=== PATIENT | male | born 1950 | race Caucasian/White ===

== ENCOUNTER 2025-02-21 09:54 | Inpatient (IN) ==
--- NOTE | 2025-01-29 09:58 | PAT Medication Instructions ---
Medication Instructions Date of Service January 29, 2025 Home Medications amlodipine 10 mg tablet 10 mg PO QAM ascorbic acid (vitamin C) 500 mg tablet (Vitamin C) 500 mg PO QAM aspirin 325 mg tablet 325 mg PO QAM atorvastatin 80 mg tablet 80 mg PO QAM carvedilol 25 mg tablet 25 mg PO BID cholecalciferol (vitamin D3) 25 mcg (1,000 unit) tablet (Vitamin D3) 25 mcg PO QAM ezetimibe 10 mg tablet (Zetia) 10 mg PO QAM garlic 400 mg tablet,delayed release 400 mg PO QAM lisinopril 40 mg tablet 40 mg PO QAM omeprazole 20 mg capsule,delayed release 20 mg PO QAM zinc 50 mg tablet 50 mg PO QAM PRN magnesium 200 mg tablet 400 mg PO QAM ASK your prescriber and surgeon aspirin 325 mg tablet 325 mg PO QAM STOP taking 2 weeks before surgery (or as soon as possible if surgery is within 2 weeks) garlic 400 mg tablet,delayed release 400 mg PO QAM DO NOT take the morning of surgery ascorbic acid (vitamin C) 500 mg tablet (Vitamin C) 500 mg PO QAM cholecalciferol (vitamin D3) 25 mcg (1,000 unit) tablet (Vitamin D3) 25 mcg PO QAM lisinopril 40 mg tablet 40 mg PO QAM zinc 50 mg tablet 50 mg PO QAM PRN magnesium 200 mg tablet 400 mg PO QAM Take morning of surgery With a small sip of water, OTHERWISE NOTHING TO EAT OR DRINK AFTER MIDNIGHT: amlodipine 10 mg tablet 10 mg PO QAM atorvastatin 80 mg tablet 80 mg PO QAM carvedilol 25 mg tablet 25 mg PO BID ezetimibe 10 mg tablet (Zetia) 10 mg PO QAM omeprazole 20 mg capsule,delayed release 20 mg PO QAM Take evening before surgery carvedilol 25 mg tablet 25 mg PO BID Other Notes If you have any questions please call us at [phone] or [phone] or [phone] or [phone]
--- NOTE | 2025-02-02 09:39 | Anesthesiology Consultation ---
Date of Service February 02, 2025 Assessment & Plan (1) Encounter for pre-operative examination: - awaiting surgeon ordered S medical and cardiology clearances. Chart Review Chart Review: Pending: Refer to Additional Notes / Consult section and Patient seen in Pre Admission Testing Teaching & Discussion Pre-Anesthesia Teaching/Discussion Notes: Instructed NPO after midnight before surgery, except medications with 15 cc of water. Medication instructions provided according to the PAT guidelines. History Surgery Operation Date: 02/21/25 09:35 Proposed Procedures p L2-L3 Decompression and Fusion, Exploration L3-S1, Possible Hardware Removal L4-S1 - Alex Childs, Height/Weight Height: 5 ft 5 in Weight: 78.4 kg Allergies Allergy/AdvReac Type Severity Reaction Status Date / Time No Known Allergies Allergy Unknown Verified 01/29/25 09:09 Medications Home Medications Medication Instructions Recorded Confirmed Last Taken amlodipine 10 mg tablet 10 mg PO QAM 02/17/23 01/29/25 Unknown ascorbic acid (vitamin C) 500 mg 500 mg PO QAM 02/17/23 01/29/25 Unknown tablet (Vitamin C) aspirin 325 mg tablet 325 mg PO QAM 02/17/23 01/29/25 Unknown atorvastatin 80 mg tablet 80 mg PO QAM 02/17/23 01/29/25 Unknown carvedilol 25 mg tablet 25 mg PO BID 02/17/23 01/29/25 Unknown cholecalciferol (vitamin D3) 25 25 mcg PO QAM 02/17/23 01/29/25 Unknown mcg (1,000 unit) tablet (Vitamin D3) ezetimibe 10 mg tablet (Zetia) 10 mg PO QAM 02/17/23 01/29/25 Unknown garlic 400 mg tablet,delayed 400 mg PO QAM 02/17/23 01/29/25 Unknown release lisinopril 40 mg tablet 40 mg PO QAM 02/17/23 01/29/25 Unknown omeprazole 20 mg capsule,delayed 20 mg PO QAM 02/17/23 01/29/25 Unknown release zinc 50 mg tablet 50 mg PO QAM PRN winter time only 02/17/23 01/29/25 Unknown magnesium 200 mg tablet 400 mg PO QAM 08/19/23 01/29/25 Unknown Past Medical History Medical History (Updated 02/02/25 @ 10:03 by Janee Benavidez PA-C) CAD (coronary artery disease) Per cardiac cath 2012- pRCA 80%, mRCA 90%, mLAD 60% (not significant by FFR 0.85), D2 branch with 70% (significant by FFR 0.72), Cx is small with diffuse minor irregularities Chronic back pain Degenerative disc disease GERD (gastroesophageal reflux disease) controlled, stable per pt History of aortic stenosis s/p TAVR 12/2023 Echo 02/2024: Trivial paravalvular AV prosthesis regurgitation present History of diverticulitis No recent issues Hx of Lyme disease Hx ~2012, treated Chronic joint stiffness (unsure if due to Lymes vs arthritis) Hyperlipidemia Hypertension controlled, stable per pt Left elbow pain Hx chronic left elbow bursitis- enlarged olecranon bursa with no overlying skin changes. No painful to patient. Evaluated by S ortho- feels due to gout (had trial but unsuccessful aspiration x 2); ortho recommending follow up with PCP for treatment of gout Pt will follow up with ortho if he decides to have bursa sac removed Left leg numbness After lumbar fusion ~2012 Prediabetes Per records, patient unaware Patient denies h/o stroke, seizures, heart attack, heart failure, blood clots/DVTs or blood transfusions. Exercise / Class Metabolic Activity II 4-5 Yardwork/Stairs/Walk up hill (denies chest discomfort or shortness of breath with one flight of stairs) Past Family History Family History Other No family history of adverse response to anesthesia Past Surgical History Surgical History History of appendectomy History of cardiac cath 2023 (prior to TAVR) 2012- no stents History of colonoscopy History of heart valve replacement TAVR, bovine valve, [place] (12/2023) S/P epidural steroid injection S/P left knee arthroscopy (08/2022) S/P lumbar fusion Lumbar Fusion L4/L5 Past Anesthesia History No Hx of Anesthesia Complications and No Family Hx of Anesthesia Complications History of PONV No Hx of PONV and No Hx of Motion Sickness Social History Smoking Status: Never smoker Do You Dip or Chew Tobacco: No (50 yrs ago) Hx Alcohol Use: Yes Alcohol type: beer alcohol intake frequency: a few times a week Hx Substance Use: No substance use type: does not use Review of Systems Patient denies chest pain, shortness of breath, dyspnea on exertion, snoring, witnessed apneas, fever, chills, cough, wheezing, or palpitations. Physical Exam Vital Signs Vitals BP 132/65 P 61 TEMP 97.8 SP02 98% on RA RESP 18 Physical Patient resting comfortably in chair in no acute distress, alert and oriented, responding appropriately throughout visit Full cervical extension range of motion without pain TMD 3.5 finger breadths Mallampati Score 2 Dentition: upper plate; denies chipped or loose teeth, caps/crowns, implants or bridges Lungs: normal respiratory effort. Good air movement, clear throughout to auscultation, no adventitious breath sounds Cardiac: regular rate and rhythm, no murmurs noted Carotid arteries: negative bruit bilat Lab Results Anesthesia Preop Results Results Anesthesia Widget: WBC 8.08 K/ul (4.8-10.8) 02/02/25 Hgb 12.5 g/dl (14.0-18.0) L 02/02/25 Hct 36.8 % (42.0-52.0) L 02/02/25 Plt 191 K/uL (130-400) 02/02/25 Na 139 mmol/L (136-145) 02/02/25 K 3.9 mmol/L (3.5-5.1) 02/02/25 Cl 106 mmol/L (98-107) 02/02/25 CO2 27 mmol/L (21-32) 02/02/25 BUN 17 mg/dl (6-23) 02/02/25 Creat 0.78 mg/dl (0.6-1.4) 02/02/25 Glucose Level 179 mg/dl (70-99(Fasting)) H 02/02/25 PT 11.7 Seconds (9.0-12.0) 02/02/25 PTT 29 Seconds (21-31) 02/02/25 INR 1.1 (0.9-1.1) 02/02/25 Urine Color Dark Yellow 02/02/25 Urine Appearance Clear (Clear) 02/02/25 Urine pH 5.5 (4.5-7.5) 02/02/25 Urine Specific [place] 1.029 (1.000-1.030) 02/02/25 Urine Protein Negative (Negative) 02/02/25 Urine Glucose (UA) Negative (Negative) 02/02/25 Urine Ketones Trace (Negative) H 02/02/25 Urine Blood Negative (Negative) 02/02/25 Urine Nitrite Negative (Negative) 02/02/25 Urine Bilirubin 1+ (Negative) H 02/02/25 Urine Urobilinogen Negative (Negative) 02/02/25 Urine Leukocyte Esterase Negative (Negative) 02/02/25 Blood Type O Negative 02/02/25 Antibody Screen NEGATIVE 02/02/25 Testing Electrocardiogram Date: 02/02/25 NSR, rate 62 bpm Left anterior fascicular block Septal infarct, age undetermined When compared with ECG of Jul 20, 2022, left anterior fascicular block is now present Chest X-Ray Date: 02/02/25 1. No active cardiopulmonary disease. 2. Stable mild cardiomegaly. Echocardiogram Date: 02/15/24 EF 55-59% S/p TAVR, mean systolic gradient is 10.6 mmHg Moderately enlarged LA Grade II diastolic dysfunction Stress Test Date: 03/12/23 Negative for inducible ischemia METS 7 Normal LV wall motion EF 55-59% Moderate cLVH Severe aortic stenosis (now s/p TAVR)
[2025-02-21] MEDS ORDERED: LIDOCAINE 2% 2 ML VIAL/AMP(20MG/ML) INFIL ONE (10:34)
[2025-02-21] MEDS ORDERED: PROPOFOL IV EMULSION 10 MG/ML 20 ML VIAL IV ONE (10:34)
[2025-02-21] MEDS ORDERED: ONDANSETRON INJ 2 MG/ML 2 ML VIAL ONE (10:34)
[2025-02-21] MEDS ORDERED: DEXAMETHASONE SOD INJ 4 MG/ML VIAL ONE (10:34)
[2025-02-21] MEDS ORDERED: ROCURONIUM BROMIDE 10 MG/ML 5 ML VIAL IV ONE (10:34)
[2025-02-21] MEDS ORDERED: MIDAZOLAM HCL 1 MG/ML 2ML VIAL ONE (10:34)
[2025-02-21] MEDS ORDERED: SUGAMMADEX SODIUM 200 MG/2 ML VIAL IV ONE (10:34)
[2025-02-21] MEDS ORDERED: KETAMINE HCL 10MG/ML SYR ONE (10:35)
[2025-02-21] MEDS ORDERED: GLYCOPYRROLATE 0.2 MG/ML VIAL ONE (10:37)
[2025-02-21] MEDS: LR 60ML/HR IV SCH (10:39)
[2025-02-21] MEDS: LR 15ML/HR IV SCH (10:39)
[2025-02-21] MEDS: GABAPENTIN 300 MG CAP PO SCH (10:54)
[2025-02-21] MEDS: CeleBREX 200 MG CAP PO SCH (10:54)
[2025-02-21] MEDS: ACETAMINOPHEN 500 MG TAB PO SCH (10:54)
[2025-02-21] MEDS ORDERED: ONDANSETRON INJ 2 MG/ML 2 ML VIAL IV PRN ×2 (11:00→14:59)
[2025-02-21] MEDS ORDERED: ATROPINE SULFATE 0.1 MG/ML 10ML SYR IV PRN (11:00)
[2025-02-21] MEDS ORDERED: PROMETHAZINE HCL 6.25 MG in SODIUM CHLORIDE 0.9% 50 ML IV PRN (11:00)
--- NOTE | 2025-02-21 11:09 | History & Physical Bridge Note ---
Date of Service February 21, 2025 History & Physical Bridge Note I have examined the patient, reviewed the History & Physical and in the interval since the performance of the History & Physical I have noted the following changes of clinical significance: no changes noted
--- NOTE | 2025-02-21 11:10 | History & Physical Report ---
Date of Service February 21, 2025 Assessment & Plan (1) Multilevel lumbosacral spondylosis with radiculopathy: Plan: L2-L4 decompression fusion, exploration of fusion L3-S1, possible hardware removal L4-S1 History of Present Illness Chief Complaint: Back and leg pain Primary Care Provider: Carola Luciano DO This is a 74-year-old male who presents with chronic persistent back and leg pain after failing course of nonoperative care is here for surgical invention. Allergies Allergy/AdvReac Type Severity Reaction Status Date / Time No Known Allergies Allergy Unknown Verified 02/21/25 10:12 Home Medications Medication Instructions Recorded Confirmed Type amlodipine 10 mg tablet 10 mg PO QAM 02/17/23 02/21/25 History ascorbic acid (vitamin C) 500 mg 500 mg PO QAM 02/17/23 02/21/25 History tablet (Vitamin C) aspirin 325 mg tablet 325 mg PO QAM 02/17/23 02/21/25 History atorvastatin 80 mg tablet 80 mg PO QAM 02/17/23 02/21/25 History carvedilol 25 mg tablet 25 mg PO BID 02/17/23 02/21/25 History cholecalciferol (vitamin D3) 25 25 mcg PO QAM 02/17/23 02/21/25 History mcg (1,000 unit) tablet (Vitamin D3) ezetimibe 10 mg tablet (Zetia) 10 mg PO QAM 02/17/23 02/21/25 History garlic 400 mg tablet,delayed 400 mg PO QAM 02/17/23 02/21/25 History release lisinopril 40 mg tablet 40 mg PO QAM 02/17/23 02/21/25 History omeprazole 20 mg capsule,delayed 20 mg PO QAM 02/17/23 02/21/25 History release zinc 50 mg tablet 50 mg PO QAM PRN winter time only 02/17/23 02/21/25 History magnesium 200 mg tablet 400 mg PO QAM 08/19/23 02/21/25 History Past Med/Surg History Problem List (Updated 02/21/25 @ 11:10 by Alex Childs DO) Multilevel lumbosacral spondylosis with radiculopathy Encounter for pre-operative examination Prediabetes Rotator cuff arthropathy of right shoulder Lumbar stenosis with neurogenic claudication (Acute) Medical History (Updated 02/21/25 @ 11:10 by Alex Childs, ) History of aortic stenosis s/p TAVR 12/2023 Echo 02/2024: Trivial paravalvular AV prosthesis regurgitation present Hx of Lyme disease Hx ~2012, treated Chronic joint stiffness (unsure if due to Lymes vs arthritis) Prediabetes Per records, patient unaware GERD (gastroesophageal reflux disease) controlled, stable per pt Left elbow pain Hx chronic left elbow bursitis- enlarged olecranon bursa with no overlying skin changes. No painful to patient. Evaluated by S ortho- feels due to gout (had trial but unsuccessful aspiration x 2); ortho recommending follow up with PCP for treatment of gout Pt will follow up with ortho if he decides to have bursa sac removed CAD (coronary artery disease) Per cardiac cath 2012- pRCA 80%, mRCA 90%, mLAD 60% (not significant by FFR 0.85), D2 branch with 70% (significant by FFR 0.72), Cx is small with diffuse minor irregularities History of diverticulitis No recent issues Hyperlipidemia Hypertension controlled, stable per pt Chronic back pain Degenerative disc disease Left leg numbness After lumbar fusion ~2012 Surgical History History of heart valve [place] History of cardiac cath 2023 (prior to TAVR) 2012- no stents S/P left knee arthroscopy (08/2022) History of colonoscopy History of appendectomy S/P epidural steroid injection S/P lumbar fusion Lumbar Fusion L4/L5 Family History Other No family history of adverse response to anesthesia Social History Smoking Status: Never smoker Second Hand Exposure: No; Do You Dip or Chew Tobacco: No (50 yrs ago); Tobacco Cessation Education Requested by Patient: No Hx Alcohol Use: Yes Alcohol type: beer Hx Substance Use: No Preferred Language: Chinese Communication Ability: Effective 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
[2025-02-21] MEDS: ceFAZolin 330 MG/ML 1 GM VIAL ONE (12:36)
[2025-02-21] MEDS: BUPIVACAINE/EPINEPHRINE 0.25% 1:200,000 30 ML VIAL ONE (12:36)
[2025-02-21] MEDS: FLOSEAL HEMOSTATIC MATRIX 10ML TOP ONE (13:28)
--- NOTE | 2025-02-21 13:49 | Operative Report ---
Post Operative Report Pre & Post Diagnosis Operation Date: 02/21/25 11:25 Pre-Op Diagnosis: #1 lumbar spondylosis with radiculopathy #2 lumbar spinal stenosis Post-Op Diagnosis: Same I identified the patient and participated in the time-out.: Yes Procedure Operation Date: 02/21/25 11:25 Actual Procedures #1 removal of posterior instrumentation L4-S1. #2 exploration of fusion L4-S1. #3 lumbar decompression with bilateral medial facetectomies and foraminotomies L2-L3 L3-L4. #4 posterior spinal fusion L2-L4. #5 placement posterior instrumentation L2-S1 using Bradley. #6 interbody fusion L2-3 L4. #7 placement of Spira 10 x 26 mm at L3-L4. #8 placement locally harvested morselized autograft in the posterior lateral gutters. #9 placement of Proteus combined with Koros in the posterior lateral gutters and os design in the interbody space. #10 application of versa wrap of the exposed dura. Surgeon Alex Childs, DO Machine Sander Alanis Crawley Estimated Blood Loss 350 Findings Consistent with Post-Op Diagnosis Specimens None Indications This is a 74-year-old male presents by much diagnosis after failing course of nonoperative care he is here for the above-mentioned procedure. Description of Procedure Patient is met with identified informed consent obtained. Patient was then taken to the operative suite underwent intubation placed in a prone position on the Leland table on top of the Ralph frame. All bony promises well-padded eyes inspected to ensure no external pressure placed upon them. This point the lumbar spine was prepped and draped in normal sterile fashion. Sharp dissection with the assistance of Bovie cautery performed down to and exposing the lamina transverse processes of L2-L3 and instrumentation at L4-L5 and S1 levels bilaterally. I then proceeded to remove the hardware bilaterally explored the fusion mass noting it to be mature and intact. I then performed a complete laminectomy of L3 including bilateral medial facetectomies and foraminotomies followed by complete laminectomy of L2 with bilateral medial facetectomies and foraminotomies. Pedicle screws in place L2-L3-L4 and S1 levels bilaterally with assistance of fluoroscopy and appropriate size isabel contoured and placed. By way of transfer from approach on the left complete discectomy at L3-L4 was performed endplates corrected to subcortical bleeding bone and a 10 x 26 mm Spira cage filled with os design bone graft tapped in position. The rods were then locked in final position bilaterally. The transverse processes of L2-L3-L4 burred to subcortical bleeding bone. Proteus combined with Koros and local autograft placement posterior gutters. Versa wrap placed of exposed dura. 15 round RENU drain inserted. The incision was then closed with 1 Vicryl the fascia 2-0 Vicryl subcutaneously and 4-0 Monocryl for final skin closure. Steri-Strips sterile dressing placed. Patient waken taken to PACU stable condition. Please note Alanis Crawley was present at the entire procedure and felt the patient positioning complex portions of the surgery and final skin closure. Im ordering 10 grams of Collagen Powder ([facility] A[facility] Primary Dressing) and 10 bordered super absorbent ([facility] A6196 Secondary Dressing) to treat an incision wound that was caused by a spine procedure. The incision is approximately 2 cm(W) x 2 cm(L) down to the spinal column and epidural space 2 cm (D) in size and is a full thickness wound showing no signs of infection. Collagen comes in 1 gram packets so 10 packets were ordered. Given the size of the wound, with moderate exudate I chose to order a 10 day supply. The patient will be provided instructions for proper application of the collagen wound kit. The patient will be asked to apply the collagen powder daily and then cover it with sterile dressings dispensed. Collagen was selected as I expect the collagen to attract monocytes and fibroblasts, act as a sacrificial substrate for MMPs, and ultimately proved a matrix for tissue and vessel growth. The collagen will act as a primary dressing in this scenario. It is medically necessary for proper healing of these wounds to improve bioavailability and contact with each wound surface, this is also to help prevent infection of wounds and promote healing ultimately leading to a better healing outcome and limit the risk of infection. I attest to the content of the Intraoperative Record and any orders documented therein. Any exceptions are noted below.
--- NOTE | 2025-02-21 14:17 | Fluoroscopy Report ---
FL lumbar spine 2-3V CLINICAL HISTORY: L2-L4 DECOMPRESSION/FUSION COMPARISON STUDY: None FLUOROSCOPY TIME: 18 seconds FLUOROSCOPY IMAGES: 3 EXPOSURE DOSE: 17 mGy FINDINGS: Fluoroscopy was provided for lumbar fusion. IMPRESSION: Intraoperative fluoroscopy. ACT 112: Negative or not required by law. Electronically signed by: Greg Landrum M.D. 02/21/2025 2:16 PM
[2025-02-21] MEDS ORDERED: NALOXONE HCL 0.4 MG/1 ML VIAL/CARP IV PRN (14:59)
[2025-02-21] MEDS ORDERED: DO NOT ADMINISTER FLU VACCINE PRN (14:59)
[2025-02-21] MEDS ORDERED: ONDANSETRON 4 MG OD TAB PO PRN (14:59)
[2025-02-21] MEDS ORDERED: LORazepam 0.5 MG TAB PO PRN (14:59)
[2025-02-21] MEDS ORDERED: NON-FORMULARY MEDICATION (Zinc 50 mg Tablet) PO PRN (14:59)
[2025-02-21] MEDS ORDERED: FAMOTIDINE 20 MG TAB PO PRN (14:59)
[2025-02-21] MEDS ORDERED: SOD PHOSPHATE/SOD BIPHOSPHATE ENEMA 132 ML BTL PR PRN (14:59)
[2025-02-21] MEDS ORDERED: diphenhydrAMINE Capsule 25 MG CAP PO PRN (14:59)
[2025-02-21] MEDS ORDERED: METOCLOPRAMIDE HCL INJ 5 MG/ML 2 ML VIAL IV PRN (14:59)
[2025-02-21] MEDS ORDERED: ACETAMINOPHEN 1,000 MG/100 ML VIAL IV PRN (14:59)
[2025-02-21] MEDS ORDERED: ACETAMINOPHEN 500 MG TAB PO PRN (14:59)
[2025-02-21] MEDS ORDERED: ALUMINUM/MAGNESIUM SUSP 30 ML UDC PO PRN (14:59)
[2025-02-21] MEDS ORDERED: DO NOT ADMINISTER PNEUMOCOCCAL VACCINE PRN (14:59)
[2025-02-21] MEDS ORDERED: HYDROmorphone INJ 1 MG/ML SYRINGE IV PRN (14:59)
[2025-02-21] MEDS ORDERED: MAGNESIUM HYDROXIDE SUSP 30 ML UDC PO PRN (14:59)
[2025-02-21] MEDS ORDERED: PROMETHAZINE 12.5 MG/50.5 ML BAG IV PRN (14:59)
--- NOTE | 2025-02-21 15:12 | Anesthesiology Progress Note ---
Date of Service February 21, 2025 Anesthesia Post Procedure Vital Signs Vital Signs: Temp Pulse Resp BP BP Pulse Ox O2 Del Method 02/21/25 14:50 36.6 C 75 14 140/80 97 Nasal Cannula 02/21/25 14:40 64 13 144/68 H 95 Nasal Cannula 02/21/25 14:30 65 14 139/70 93 Nasal Cannula 02/21/25 14:20 67 17 145/73 H 99 Nasal Cannula 02/21/25 14:10 64 16 142/73 H 99 Nasal Cannula 02/21/25 14:00 36.0 C L 79 15 144/74 H 97 Nasal Cannula 02/21/25 10:09 36.6 C 71 20 144/83 H 95 Room Air O2 Flow Rate 02/21/25 14:50 2 02/21/25 14:40 2 02/21/25 14:30 2 02/21/25 14:20 2 02/21/25 14:10 2 02/21/25 14:00 4 02/21/25 10:09 Pain Intensity Back: Pain Intensity: 6 Transfer of Care Handoff Completed per policy Notes Mental Status: alert / awake / arousable Patient Amnestic to Procedure: Yes Nausea / Vomiting: adequately controlled Pain: adequately controlled Airway Patency, RR, SpO2: stable & adequate BP & HR: stable & adequate Hydration State: stable & adequate Anesthetic Complications: no major complications apparent
[2025-02-21] MEDS: HYDROmorphone INJ 0.5 MG/0.5 ML SYR IV PRN (15:23)
[2025-02-21] MEDS: LACTATED RINGER'S 1,000 ML IV SCH (16:48)
--- NOTE | 2025-02-21 19:06 | Consultation ---
Date of Consultation February 21, 2025 Assessment & Plan (1) S/P spinal surgery: (2) Multilevel lumbosacral spondylosis with radiculopathy: Post op day# 0 S/P removal hardware L4-S1 and decompression fusion L2-L4 by Dr Naz ALAMO#[id number] Pain management per ortho Wound management per ortho PT/OT as appropriate DVT prophylaxis per ortho Incentive spirometry Monitor H&H for acute blood loss anemia; pre-op Hgb: 12.5 (3) CAD (coronary artery disease): (4) Hypertension: (5) Hyperlipidemia: H/O cardiac catheterization in : proximal RCA CTA, RPDA and distal RCA fills via left to right collateral; 60% mid LAD stenosis; 60% D1 stenosis. Post op BP 106/67 Will hold home amlodipine and lisinopril for now Continue carvedilol with holding parameters (6) History of aortic stenosis: S/P TAVR in 2023 DVT Prophylaxis SCDs Disposition per primary service Follows with Dr Luciano for routine care Pt was seen and care coordinated with Dr Gibbs. See addendum I spent a total of 40 minutes reviewing notes, outpatient records, labs, medication, coordinating, documenting and providing care for this patient excluding time spent in the performance of separately billed services and excluding time spent by another provider/QHP. Thank you for this consultation. We will follow the patient with you during their hospital stay. You can reach a [facility] via [facility] Supervising Physician Co-Signing Physician Notes delayed entry date of service noted above Attending Addendum: Case reviewed with the advanced practitioner. I have personally performed a history and physical examination on the patient. I have reviewed the advanced practitioner's documentation on the date of service referenced in note, and I agree with, and take responsibility for the plan of care. please refer to her notes for full details patient seen and examined, records reviewed by myself as well on exam, patient seen resting in bed, not in distress in good spirits states he feels fine overall no chest pain, dyspnea, palpitations, dizziness, nausea/vomiting, abdominal pain back pain is 3/10 no other symptoms VS noted and reviewed oriented x 3 not in distress, speaks in sentences with no effort nor accessory muscle use normal rate, regular rhythm, no murmurs clear breath sounds bilaterally non distended, soft, nontender RENU drain in place with some sero-sanguinous output no bipedal edema, erythema, warmth no neuro deficits all labs, imaging noted and reviewed diagnoses and plan of care as per advanced practitioner's notes I spent a total of 30 minutes coordinating, documenting, and providing care for this patient, excluding time spent in the performance of separately billed services or time spent by another provider/QHP. Taras Gibbs MD History of Present Illness Requesting Physician: Dr Childs Reason for Consultation: Post op medical management Attending Physician: Alex Childs, History of Present Illness Patient is 74 year old male with PMH CAD, HTN, dyslipidemia, s/p TAVR, prediabetes, gout and others listed below seen in medical consultation s/p removal hardware L4-S1 and decompression fusion L2-L4 today by Dr Childs. Post op patient reports doing well. Denies any nausea or vomiting. Tolerated liquid diet for dinner. States pain is controlled currently. Last BM this morning. Has Law catheter in place. States left leg paresthesias which were present prior to surgery also. Denies WHITTAKER, dizziness, syncope, CP, SOB, cough, rhinorrhea, abdominal pain, weakness, extremity edema, rashes, urinary symptoms. Allergies Allergy/AdvReac Type Severity Reaction Status Date / Time No Known Allergies Allergy Unknown Verified 02/21/25 10:12 Home Medications Medication Instructions Recorded Confirmed Type amlodipine 10 mg tablet 10 mg PO QAM 02/17/23 02/21/25 History ascorbic acid (vitamin C) 500 mg 500 mg PO QAM 02/17/23 02/21/25 History tablet (Vitamin C) aspirin 325 mg tablet 325 mg PO QAM 02/17/23 02/21/25 History atorvastatin 80 mg tablet 80 mg PO QAM 02/17/23 02/21/25 History carvedilol 25 mg tablet 25 mg PO BID 02/17/23 02/21/25 History cholecalciferol (vitamin D3) 25 25 mcg PO QAM 02/17/23 02/21/25 History mcg (1,000 unit) tablet (Vitamin D3) ezetimibe 10 mg tablet (Zetia) 10 mg PO QAM 02/17/23 02/21/25 History garlic 400 mg tablet,delayed 400 mg PO QAM 02/17/23 02/21/25 History release lisinopril 40 mg tablet 40 mg PO QAM 02/17/23 02/21/25 History omeprazole 20 mg capsule,delayed 20 mg PO QAM 02/17/23 02/21/25 History release zinc 50 mg tablet 50 mg PO QAM PRN winter time only 02/17/23 02/21/25 History magnesium 200 mg tablet 400 mg PO QAM 08/19/23 02/21/25 History Patient History Medical History History of aortic stenosis s/p TAVR 12/2023 Echo 02/2024: Trivial paravalvular AV prosthesis regurgitation present Hx of Lyme disease Hx ~2012, treated Chronic joint stiffness (unsure if due to Lymes vs arthritis) Prediabetes Per records, patient unaware GERD (gastroesophageal reflux disease) controlled, stable per pt Left elbow pain Hx chronic left elbow bursitis- enlarged olecranon bursa with no overlying skin changes. No painful to patient. Evaluated by [facility] ortho- feels due to gout (had trial but unsuccessful aspiration x 2); ortho recommending follow up with PCP for treatment of gout Pt will follow up with ortho if he decides to have bursa sac removed CAD (coronary artery disease) Per cardiac cath 2012- pRCA 80%, mRCA 90%, mLAD 60% (not significant by FFR 0.85), D2 branch with 70% (significant by FFR 0.72), Cx is small with diffuse minor irregularities History of diverticulitis No recent issues Hyperlipidemia Hypertension controlled, stable per pt Chronic back pain Degenerative disc disease Left leg numbness After lumbar fusion ~2012 Surgical History History of heart valve replacement TAVR, bovine valve, [place] (12/2023) History of cardiac cath 2023 (prior to TAVR) 2012- no stents S/P left knee arthroscopy (08/2022) History of colonoscopy History of appendectomy S/P epidural steroid injection S/P lumbar fusion Lumbar Fusion L4/L5 Family History Other No family history of adverse response to anesthesia Social History Smoking Status: Never smoker Second Hand Exposure: No; Do You Dip or Chew Tobacco: No (50 yrs ago); Tobacco Cessation Education Requested by Patient: No Hx Alcohol Use: Yes Alcohol type: beer Hx Substance Use: No Preferred Language: Austrian Communication Ability: Effective Set Up [employer] Required: No Beliefs That Will Affect Care: None Current Living Situation: Spouse Other Information That Helps Us Care for You: No Feels Safe at Home: Yes Safety Concerns: Feels Safe At This Time Assistive Devices: Denture - Upper and Glasses Review of Systems Review of Systems: All systems reviewed & are unremarkable except as noted in HPI & below Physical Exam Physical Exam: General: no distress, WDWN Head: normocephalic, atraumatic Eyes: conjunctiva non-injected, anicteric ENT: normal inspection external ears, nose, mucous membranes moist Neck: supple, trachea midline, non-tender Lungs: clear, no respiratory distress, no wheezing/rhonchi/rales CV: RRR, no murmur, no pretibial edema Abd: normal BS, soft, non-tender Back: +RENU drain in place with serosanguineous drainage Ext: no cyanosis, no calf tenderness; bilateral pedal pushes and pulls intact, sensation to light touch intact Neuro: A&O x 3, no focal deficits noted, normal affect Skin: warm, dry Results & Data Vital Signs (Past 12 Hours) Vital Signs Temp Pulse Pulse Resp BP BP Pulse Ox 02/21/25 17:29 36.8 C 77 18 106/67 98 02/21/25 16:45 77 18 131/68 96 02/21/25 15:51 69 18 147/66 H 94 02/21/25 15:29 36.4 C L 73 16 152/76 H 96 02/21/25 15:00 02/21/25 14:59 36.8 C 64 16 162/54 H 94 02/21/25 14:50 36.6 C 75 14 140/80 97 02/21/25 14:40 64 13 144/68 H 95 02/21/25 14:30 65 14 139/70 93 02/21/25 14:20 67 17 145/73 H 99 02/21/25 14:10 64 16 142/73 H 99 02/21/25 14:00 36.0 C L 79 15 144/74 H 97 02/21/25 10:09 36.6 C 71 20 144/83 H 95 O2 Del Method O2 Flow Rate 02/21/25 17:29 Nasal Cannula 2 02/21/25 16:45 Nasal Cannula 2 02/21/25 15:51 Nasal Cannula 2 02/21/25 15:29 Nasal Cannula 2 02/21/25 15:00 2 02/21/25 14:59 Nasal Cannula 2 02/21/25 14:50 Nasal Cannula 2 02/21/25 14:40 Nasal Cannula 2 02/21/25 14:30 Nasal Cannula 2 02/21/25 14:20 Nasal Cannula 2 02/21/25 14:10 Nasal Cannula 2 02/21/25 14:00 Nasal Cannula 4 02/21/25 10:09 Room Air
[2025-02-21] MEDS: DOCUSATE SODIUM/SENNA 50/8.6MG TAB PO SCH (21:08)
[2025-02-22] MEDS: POLYETHYLENE (MIRALAX) 17 GM PACK PO SCH (06:03)
[2025-02-22 07:41] LABS: Hematocrit (blood only) 23.4 % (42.0-52.0); Hemoglobin 7.7 g/dl (14.0-18.0); Immature Granulocytes # (auto) 0.13 K/uL (0.01-0.20); Immature Granulocytes % (auto) 0.8 %; Mean Corpuscular Hemoglobin 33.2 pg (25.0-34.0); Mean Corpuscular Volume 100.9 fL (80.0-100.0); Platelet Count 143 K/uL (130-400); RDW Standard Deviation 45.1 fL (36.4-46.3); Red Blood Count 2.32 M/uL (4.70-6.10); White Blood Count 17.12 K/ul (4.8-10.8)
[2025-02-22 07:57] LABS: Anion Gap 6.0 (3-11); Blood Urea Nitrogen 16.0 mg/dl (6-23); Calcium 8.2 mg/dl (8.6-10.3); Carbon Dioxide 29.0 mmol/L (21-32); Chloride 101.0 mmol/L (98-107); Creatinine Clr Calc Pharmacy 71.1 ml/min; Glucose 164.0 mg/dl (70-99(Fasting)); Potassium 4.1 mmol/L (3.5-5.1); Sodium 136.0 mmol/L (136-145)
[2025-02-22 08:00] LABS: RBC Morphology Unremarkable
[2025-02-22] MEDS: ATORVASTATIN 40 MG TAB PO SCH (08:17)
[2025-02-22] MEDS: MAGNESIUM OXIDE 400 MG TAB PO SCH (08:18)
[2025-02-22] MEDS: CHOLECALCIFEROL 25 MCG (1000 UNITS) TAB PO SCH (08:18)
[2025-02-22] MEDS: ASCORBIC ACID 500 MG TAB PO SCH (08:18)
[2025-02-22] MEDS: ASPIRIN 325 MG ECTAB PO SCH (08:18)
[2025-02-22] MEDS: EZETIMIBE 10 MG TAB PO SCH (08:18)
[2025-02-22] MEDS: dexAMETHasone 6 MG in SYRINGE 0 ML IV SCH (08:18)
--- NOTE | 2025-02-22 08:32 | Orthopedic Progress Note ---
Date of Service February 22, 2025 Assessment & Plan (1) Multilevel lumbosacral spondylosis with radiculopathy: Plan: Zoltan is postoperative day 1 status post hardware removal L4-S1, decompression L2-4 with instrumented fusion L2-S1. He is can start physical therapy today. Work on pain control. DVT prophylaxis is in the form of teds and SCDs. Start aggressive bowel regimen. Anticipate discharge home within the next day or 2 Admission and Anticipated Discharge Date Admission Date: February 21, 2025 Subjective Zoltan is postoperative day 1 status post hard removal L4-S1 decompression L2-4 with instrumented fusion L2-S1. He had an uneventful evening. He has had left leg numbness for the past 11 years since his first surgery which is unchanged. No new complaints. Pain is controlled. Review of Systems Review of Systems: All systems reviewed & are unremarkable except as noted in HPI & below Physical Exam Physical Exam: He is laying in bed in no acute distress Alert and oriented x 3 Lumbar dressing is clean dry and intact with functioning RENU drain Strength intact bilateral lower extremities Results & Data Vital Signs (Past 12 Hours) Vital Signs Temp Pulse Resp BP BP Pulse Ox O2 Del Method 02/22/25 05:30 36.9 C 70 16 121/57 L 96 Room Air 02/22/25 01:11 36.8 C 74 16 99/58 L 108/60 97 Room Air 02/21/25 21:02 36.9 C 75 14 95/59 L 109/65 98 Nasal Cannula 02/21/25 21:00 Nasal Cannula O2 Flow Rate 02/22/25 05:30 02/22/25 01:11 02/21/25 21:02 2 02/21/25 21:00 2
--- NOTE | 2025-02-22 13:31 | Hospitalist Progress Note ---
Date of Service February 22, 2025 Assessment & Plan (1) S/P spinal surgery: (2) Multilevel lumbosacral spondylosis with radiculopathy: Plan: Lumbar spinal stenosis with radiculopathy Postoperative acute blood loss anemia --S/P S/P removal hardware L4-S1 and decompression fusion L2-L4 by Dr Childs on 02/21/25 Pain management, DVT prophylaxis, wound care as per primary team Incentive spirometry Bowel regimen to prevent constipation Continue PT OT, fall precautions Monitor CBC Leukocytosis Likely reactive, also on Decadron Monitor (3) CAD (coronary artery disease): (4) Hypertension: Plan: Currently hypotension Hold amlodipine, lisinopril for now Continue Coreg with holding parameters Monitor blood pressure (5) Hyperlipidemia: Plan: H/O cardiac catheterization in : proximal RCA CTA, RPDA and distal RCA fills via left to right collateral; 60% mid LAD stenosis; 60% D1 stenosis. Continue aspirin, Lipitor, carvedilol, Zetia (6) History of aortic stenosis: Plan: S/P TAVR in 2023 DVT Prophylaxis SCDs per Primary CODE STATUS Full code Admission and Anticipated Discharge Date Admission Date: February 21, 2025 Subjective Patient is seen and examined at bedside Offers no specific complaints today Back pain at surgical site is controlled Eager to get discharged Denies any chest pain, dyspnea, nausea, vomiting, abdominal pain Review of Systems Review of Systems: All systems reviewed & are unremarkable except as noted in Subjective Physical Exam Physical Exam: Physical Exam: Vitals signs as noted above General Appearance:Moderately built and nourished, no apparent distress Head: normocephalic, Atraumatic Eyes: normal inspection, EOMI Neck: supple, Trachea midline Respiratory/Chest: Normal breath sounds, CTA, No accessory muscle use Cardiovascular: S1, S2, No murmur Abdomen/GI:Soft, Non tender, Bowel sounds present Back: Surgical site in dressing,+drain Extremities/Musculoskeletal:normal inspection, no edema Neurologic/Psych:AAOX3, grossly no focal neurological deficits Skin: normal color, warm Results & Data Results & Data Vital Signs (Past 12 Hours) Vital Signs Temp Pulse Resp BP Pulse Ox O2 Del Method 02/22/25 08:46 36.6 C 81 18 110/58 L 97 Room Air 02/22/25 05:30 36.9 C 70 16 121/57 L 96 Room Air Laboratory Results Short CBC 02/22/25 Range/Units 07:00 WBC 17.12 H (4.8-10.8) K/ul Hgb 7.7 L (14.0-18.0) g/dl Hct 23.4 L (42.0-52.0) % Plt Count 143 (130-400) K/uL BMP 02/22/25 07:00 Sodium 136 Potassium 4.1 Chloride 101 Carbon Dioxide 29 BUN 16 Creatinine 0.90 Glucose 164 H Calcium 8.2 L
[2025-02-23 07:50] LABS: Hematocrit (blood only) 20.6 % (42.0-52.0); Hemoglobin 6.9 g/dl (14.0-18.0); Mean Corpuscular Hemoglobin 33.7 pg (25.0-34.0); Mean Corpuscular Volume 100.5 fL (80.0-100.0); Platelet Count 125 K/uL (130-400); RDW Standard Deviation 46.1 fL (36.4-46.3); Red Blood Count 2.05 M/uL (4.70-6.10); White Blood Count 16.62 K/ul (4.8-10.8)
[2025-02-23] MEDS ORDERED: SODIUM CHLORIDE 0.9% 100 ML IV PRN ×2 (08:09→09:13)
[2025-02-23 08:28] LABS: Anion Gap 5.0 (3-11); Blood Urea Nitrogen 18.0 mg/dl (6-23); Calcium 8.4 mg/dl (8.6-10.3); Carbon Dioxide 30.0 mmol/L (21-32); Chloride 106.0 mmol/L (98-107); Creatinine Clr Calc Pharmacy 87.7 ml/min; Glucose 138.0 mg/dl (70-99(Fasting)); Magnesium 2.1 mg/dl (1.7-2.4); Potassium 4.1 mmol/L (3.5-5.1); Sodium 141.0 mmol/L (136-145)
--- NOTE | 2025-02-23 13:05 | Orthopedic Progress Note ---
Date of Service February 23, 2025 Assessment & Plan (1) Multilevel lumbosacral spondylosis with radiculopathy: Plan: At this time we will continue physical therapy assess his progress hopefully discharge home tomorrow. Admission and Anticipated Discharge Date Admission Date: February 21, 2025 Subjective Patient's back pain is controlled leg symptoms improved Physical Exam Physical Exam: Patient is currently bed. He is receiving a transfusion. He is comfortable. Good strength testing. Results & Data Vital Signs (Past 12 Hours) Vital Signs Temp Pulse Pulse Resp BP BP Pulse Ox 02/23/25 12:52 36.6 C 70 18 109/30 L 96 02/23/25 12:32 36.4 C L 68 20 113/62 95 02/23/25 11:32 36.6 C 68 19 117/57 L 95 02/23/25 10:43 36.7 C 68 20 112/57 L 95 02/23/25 10:32 36.7 C 68 20 112/57 L 95 02/23/25 10:02 36.7 C 68 19 113/61 95 02/23/25 09:47 36.7 C 68 19 107/58 L 02/23/25 09:45 36.7 C 68 16 98/58 L 95 02/23/25 09:24 36.7 C 80 16 109/61 98 02/23/25 07:13 36.8 C 80 20 147/67 H 96 O2 Del Method 02/23/25 12:52 02/23/25 12:32 02/23/25 11:32 02/23/25 10:43 02/23/25 10:32 02/23/25 10:02 02/23/25 09:47 02/23/25 09:45 02/23/25 09:24 02/23/25 07:13 Room Air
--- NOTE | 2025-02-23 15:02 | Hospitalist Progress Note ---
Date of Service February 23, 2025 Assessment & Plan (1) S/P spinal surgery: (2) Multilevel lumbosacral spondylosis with radiculopathy: Plan: Lumbar spinal stenosis with radiculopathy Postoperative acute blood loss anemia --S/P S/P removal hardware L4-S1 and decompression fusion L2-L4 by Dr Childs on 02/21/25 Pain management, DVT prophylaxis, wound care as per primary team Incentive spirometry Continue bowel regimen to prevent constipation Continue PT OT, fall precautions Monitor CBC Hemoglobin dropped to 6.9 today Will transfuse 1 unit PRBC Leukocytosis Likely reactive, also on Decadron Monitor Leukocytosis trending down (3) CAD (coronary artery disease): (4) Hypertension: Plan: Resume amlodipine, lisinopril Also on Coreg Monitor blood pressure (5) Hyperlipidemia: Plan: H/O cardiac catheterization in : proximal RCA CTA, RPDA and distal RCA fills via left to right collateral; 60% mid LAD stenosis; 60% D1 stenosis. Continue aspirin, Lipitor, carvedilol, Zetia (6) History of aortic stenosis: Plan: S/P TAVR in 2023 DVT Prophylaxis SCDs per Primary CODE STATUS Full code Admission and Anticipated Discharge Date Admission Date: February 21, 2025 Subjective Patient is seen and examined at bedside No new complaints Eager to get discharged Noted drop in hemoglobin Back pain at surgical site is controlled Had bowel movement today Denies any chest pain, dyspnea, nausea, vomiting, abdominal pain Review of Systems Review of Systems: All systems reviewed & are unremarkable except as noted in Subjective Physical Exam Physical Exam: Physical Exam: Vitals signs as noted above General Appearance:Moderately built and nourished, no apparent distress Head: normocephalic, Atraumatic Eyes: normal inspection, EOMI Neck: supple, Trachea midline Respiratory/Chest: Normal breath sounds, CTA, No accessory muscle use Cardiovascular: S1, S2, No murmur Abdomen/GI:Soft, Non tender, Bowel sounds present Back: Surgical site in dressing,+drain Extremities/Musculoskeletal:normal inspection, no edema Neurologic/Psych:AAOX3, grossly no focal neurological deficits Skin: normal color, warm Results & Data Results & Data Vital Signs (Past 12 Hours) Vital Signs Temp Pulse Pulse Resp BP BP Pulse Ox 02/23/25 12:52 36.6 C 70 18 109/30 L 96 02/23/25 12:32 36.4 C L 68 20 113/62 95 02/23/25 11:32 36.6 C 68 19 117/57 L 95 02/23/25 10:43 36.7 C 68 20 112/57 L 95 02/23/25 10:32 36.7 C 68 20 112/57 L 95 02/23/25 10:02 36.7 C 68 19 113/61 95 02/23/25 09:47 36.7 C 68 19 107/58 L 02/23/25 09:45 36.7 C 68 16 98/58 L 95 02/23/25 09:24 36.7 C 80 16 109/61 98 02/23/25 07:13 36.8 C 80 20 147/67 H 96 O2 Del Method 02/23/25 12:52 02/23/25 12:32 02/23/25 11:32 02/23/25 10:43 02/23/25 10:32 02/23/25 10:02 02/23/25 09:47 02/23/25 09:45 02/23/25 09:24 02/23/25 07:13 Room Air Laboratory Results Short CBC 02/23/25 Range/Units 06:47 WBC 16.62 H (4.8-10.8) K/ul Hgb 6.9 L* (14.0-18.0) g/dl Hct 20.6 L* (42.0-52.0) % Plt Count 125 L (130-400) K/uL BMP 02/23/25 06:47 Sodium 141 Potassium 4.1 Chloride 106 Carbon Dioxide 30 BUN 18 Creatinine 0.73 Glucose 138 H Calcium 8.4 L
[2025-02-23 16:27] LABS: Hematocrit (blood only) 23.7 % (42.0-52.0); Hemoglobin 8.0 g/dl (14.0-18.0)
[2025-02-23 17:05] LABS: Hemoglobin A1C 5.5 % (4.5-5.6)
[2025-02-24 07:14] LABS: Hematocrit (blood only) 22.0 % (42.0-52.0); Hemoglobin 7.3 g/dl (14.0-18.0); Mean Corpuscular Hemoglobin 32.4 pg (25.0-34.0); Mean Corpuscular Volume 97.8 fL (80.0-100.0); Platelet Count 124 K/uL (130-400); RDW Standard Deviation 57.6 fL (36.4-46.3); Red Blood Count 2.25 M/uL (4.70-6.10); White Blood Count 15.29 K/ul (4.8-10.8)
[2025-02-24 07:30] LABS: Anion Gap 5.0 (3-11); Blood Urea Nitrogen 18.0 mg/dl (6-23); Calcium 8.4 mg/dl (8.6-10.3); Carbon Dioxide 28.0 mmol/L (21-32); Chloride 105.0 mmol/L (98-107); Creatinine Clr Calc Pharmacy 95.5 ml/min; Glucose 137.0 mg/dl (70-99(Fasting)); Potassium 3.8 mmol/L (3.5-5.1); Sodium 138.0 mmol/L (136-145)
--- NOTE | 2025-02-24 07:59 | Discharge Summary ---
Date of Service February 24, 2025 Admission HPI Per Admitting Provider This is a 74-year-old male who presents with chronic persistent back and leg pain after failing course of nonoperative care is here for surgical invention. Principal Diagnosis Lumbar spondylosis with radiculopathy Discharge Data Allergies Allergy/AdvReac Type Severity Reaction Status Date / Time No Known Allergies Allergy Unknown Verified 02/21/25 10:12 Consultations 02/21/25 14:59 Consult Hospitalist Routine Procedures Performed Operation Date: 02/21/25 11:25 Actual Procedures p L2-L4 Decompression and Fusion, L3-S1 Exploration, (Not Applicable) - Alex Childs DO s L4-S1 Hardware Removal(Not Applicable) - Alex Childs DO Ordered Studies 02/21/25 [place] lumbar spine 2-3V Routine Hospital Course (1) Multilevel lumbosacral spondylosis with radiculopathy: Patient underwent a multilevel lumbar decompression fusion tolerated this well was taken orthopedic for postoperative. Postop he progressed appropriately. RENU drain decreasing. Strength improving. Pain controlled. Subsidy discharged home. Discharge orders and instructions from the chart for further review. Total Time Total Time Spent Total Time Spent (In Minutes): 20 minutes Discharge Plan Discharge Items Patient Disposition: Home - Self-Care Reason For Visit: Lumbar Disc Disease, Other Spondylosis with Radicu Discharge Diagnosis: Lumbar spondylosis with radiculopathy Activity: As commented below Non-emergency contact: Primary Care Provider Call non-emergency contact if: you have any medication questions Follow-up/Referrals: Carola Luciano DO [Primary Care Provider] - Diet: Regular Addtl Attending Provider Instructions: ACTIVITY RECOMMENDATIONS: SELF CARE INSTRUCTIONS AFTER THORACIC/LUMBAR FUSIONS 1. You may walk to your tolerance. It is good exercise for your legs and back. Expect some back and intermittent leg aches and pains. 2. You may perform "counter-top" level activities (make a sandwich, mehnaz with a project, etc.). 3. No bending or lifting of more than 10 pounds or back twisting of any nature (roll like a log when turning in bed). 4. You may ride in a car for 20-30 minutes at a time. No driving until after your first visit with your doctor. 5. Frequent changes of position and restricting sitting to 30 minutes at a time will help limit the amount of back spasms and stiffness you may experience. 6. You may discontinue the use of ambulatory aids (cane, crutches, etc.) once your strength and confidence allow. 7. You may spinneret cleaner the shower and let water strike your incision when you arrive home at least once daily. Do not take a tub bath, sit in a hot tub or go into a swimming pool until after your first recheck in the office. 8. You may resume previous diet. SPECIAL CARE INSTRUCTIONS: VERY IMPORTANT TO READ AND REVIEW A. Your surgical incision has been closed with a cosmetic suture under the skin that will dissolve in about 6 weeks. In 14 days, you can use a pair of clean scissors and cut the suture that is left outside of the skin at the ends of your incision. 1. The small skin tapes can be removed 7 days after surgery if they have not fallen off by that point. 2. You may keep the wound open to air as much as possible to promote healing after post-op day number 5 unless told otherwise by your doctor. 3. If you think the wound looks like it is becoming infected (redness or worsening drainage) and/or you are experiencing fever, chill or worsening back pain and muscle spasms, contact the office so that we may evaluate you as soon as possible. B. Complications are uncommon, but please contact us if you have any signs or symptoms of: 1. wound infection (fever higher than 102.5 degrees F, redness, separation of wound, drainage, or increasing pain from the incision) 2. blood clots in legs (pain, swelling, redness and warmth in legs) 3. urinary tract infection (fever higher than 102.5 degrees F, burning upon urination or increased frequency of urination) 4. nerve problems (inability to walk on your toes or heels, numbness, loss of bowel or bladder control) 5. any other symptoms that concern you C. Please call the office at if you have any concerns or questions about your operation or recovery. D. No smoking! Smoking drastically decreases the chance of a solid fusion. E. Do not take any anti-inflammatory medications (Indocin, Advil, Motrin, Aspirin, Naprosyn, etc.) as these may inhibit the chance of a solid fusion. Tylenol is okay to take for pain. MANAGING PAIN AFTER SPINAL SURGERY 1. Narcotic medication is intended for short-term use and will be provided for surgical pain. Surgical pain usually lasts for a period of 4-6 weeks. Narcotic medication includes Percocet, Vicodin, Darvocet, Tylenol #3 or Lortab. 2. Longer-term pain is more appropriately treated with non-narcotic medication such as Tylenol ES. 3. Muscle spasm is not appropriately treated with narcotics. Muscle relaxers such as Soma, Flexeril or Skelaxin can be used along with Tylenol ES. 4. Remember that we all live with some "aches and pains". This is not unusual or uncommon after an injury or as we get older. a. Back pain is expected and may include muscle spasms for 4 to 6 weeks after surgery. The pain should gradually improve. If the pain worsens for no apparent reason, please contact the office. b. Intermittent leg pain may also be experienced and should not be concerned about unless it worsens for no apparent reason. If so, please contact the office. 5. We will provide appropriate medication within the normal guidelines of their prescribed use. We will also be very cautious and aware of potential abuse and extended duration of patients' medication needs. a. Pain medications are for your comfort and to assist with sleep and rest so that the tissue can heal. They are not provided in order to return to normal activity and should not be used through the day. To do so or worsening pain at night can result from ongoing tissue damage and development of tolerance to the prescribed medicine. 6. Please allow 2-3 days to process refills. Prescriptions will not be mailed but must be picked up at the office. FOLLOW UP VISIT: Keep your scheduled follow-up appointment. Any questions, please call the office at . Pending Studies at Discharge: No Stand-Alone Forms: My [employer], Smoking Cessation Medications and DC Order Prescriptions: New tramadol 50 mg tablet 50 mg PO Q6H PRN (Reason: pain, moderate) Qty: 30 0RF oxycodone 5 mg tablet 5 mg PO Q6H PRN (Reason: pain) Qty: 30 0RF Rx Instructions: Oxycodone for severe pain tramadol for moderate pain Continued atorvastatin 80 mg Tablet 80 mg PO QAM carvedilol 25 mg Tablet 25 mg PO BID Rx Instructions: must administer with a meal/food Garlique 400 mg Tablet,Delayed Release (Dr/Ec) 400 mg PO QAM aspirin 325 mg Tablet 325 mg PO QAM ascorbic acid (vitamin C) [Vitamin C] 500 mg Tablet 500 mg PO QAM amlodipine 10 mg Tablet 10 mg PO QAM omeprazole 20 mg Capsule,Delayed Release(Dr/Ec) 20 mg PO QAM zinc 50 mg Tablet 50 mg PO QAM PRN (Reason: winter time only) Patient Comments: winter time only lisinopril 40 mg Tablet 40 mg PO QAM ezetimibe [Zetia] 10 mg Tablet 10 mg PO QAM cholecalciferol (vitamin D3) [Vitamin D3] 25 mcg (1,000 unit) Tablet 25 mcg PO QAM magnesium 200 mg Tablet 400 mg PO QAM Discharge Orders: Discharge Order (Routine); Ordered 02/24/25 Ordered By: Alex Childs Admission Data Admit Date/Time: 02/21/25 13:53 Attending Provider: Alex Childs Admit Provider: Alex Childs Primary Care Provider: Caorla Luciano Other Providers: Hamida Cheung
[2025-02-24 08:40] VITALS: BP 132/65; PULSE 75; RESP 18; TEMP 97.9; O2SAT 95
--- NOTE | 2025-02-24 09:11 | Hospitalist Progress Note ---
Date of Service February 24, 2025 Assessment & Plan (1) S/P spinal surgery: (2) Multilevel lumbosacral spondylosis with radiculopathy: Plan: Lumbar spinal stenosis with radiculopathy Postoperative acute blood loss anemia --S/P S/P removal hardware L4-S1 and decompression fusion L2-L4 by Dr Childs on 02/21/25 --S/P PRBCs Pain management, DVT prophylaxis, wound care as per primary team Incentive spirometry Continue bowel regimen to prevent constipation Continue PT OT, fall precautions Monitor CBC Denies any acute bleeding issues Advised to follow-up with PCP with repeat blood work in 1 week to monitor his hemoglobin. patient understands and agrees with the plan Leukocytosis Likely reactive, also on Decadron Monitor Leukocytosis trending down (3) CAD (coronary artery disease): (4) Hypertension: Plan: Continue amlodipine, lisinopril, Coreg Monitor blood pressure (5) Hyperlipidemia: Plan: H/O cardiac catheterization in : proximal RCA CTA, RPDA and distal RCA fills via left to right collateral; 60% mid LAD stenosis; 60% D1 stenosis. Continue aspirin, Lipitor, carvedilol, Zetia (6) History of aortic stenosis: Plan: S/P TAVR in 2023 DVT Prophylaxis SCDs per Primary CODE STATUS Full code Disposition As per primary team Admission and Anticipated Discharge Date Admission Date: February 21, 2025 Subjective Patient is seen and examined at bedside Offers no new complaints Family at bedside Denies any back pain at surgical site Drain is removed this morning Denies any chest pain, dyspnea, nausea, vomiting, abdominal pain Plan to be discharged home today Review of Systems Review of Systems: All systems reviewed & are unremarkable except as noted in Subjective Physical Exam Physical Exam: Physical Exam: Vitals signs as noted above General Appearance:Moderately built and nourished, no apparent distress Head: normocephalic, Atraumatic Eyes: normal inspection, EOMI Neck: supple, Trachea midline Respiratory/Chest: Normal breath sounds, CTA, No accessory muscle use Cardiovascular: S1, S2, No murmur Abdomen/GI:Soft, Non tender, Bowel sounds present Back: Surgical site in dressing Extremities/Musculoskeletal:normal inspection, no edema Neurologic/Psych:AAOX3, grossly no focal neurological deficits Skin: normal color, warm Results & Data Results & Data Vital Signs (Past 12 Hours) Vital Signs Temp Pulse Resp BP Pulse Ox O2 Del Method 02/24/25 08:39 36.6 C 75 18 132/65 95 Room Air Laboratory Results Short CBC 02/23/25 02/24/25 Range/Units 16:17 06:23 WBC 15.29 H (4.8-10.8) K/ul Hgb 8.0 L 7.3 L (14.0-18.0) g/dl Hct 23.7 L 22.0 L (42.0-52.0) % Plt Count 124 L (130-400) K/uL BMP 02/24/25 06:23 Sodium 138 Potassium 3.8 Chloride 105 Carbon Dioxide 28 BUN 18 Creatinine 0.67 Glucose 137 H Calcium 8.4 L
== END 2025-02-24 11:25 | disposition home or self-care (01) | DRG 427 ==
LOC: ASU 09:54 → 3N 13:53